=== PATIENT | male | born 1960 | race American Indian/Alaskan Native ===

== ENCOUNTER 2018-08-26 00:57 | Emergency (ER) | payer OTHER ==
--- NOTE | 2018-08-26 02:31 | XRay Report ---
PROCEDURE: XR RIBS UNI W PA CHEST 3+V LT TECHNIQUE: 5 views of the left ribs were obtained along with a PA chest. HISTORY: left chest pain AND RIB PAIN COMPARISONS: None FINDINGS: There is no evidence of acute displaced left-sided rib fracture. The heart size is normal. There is m inimal atelectasis in left lung base. There is no evidence of pneumothorax or pleural effusion. Limit ed views of the upper lumbar spine reveal multilevel disc degeneration with endplate spurring. IMPRESSION: No evidence of acute left-sided rib fracture. Minimal atelectatic changes in left lung base. No evidence of pneumothorax. Multilevel disc degeneration in the lumbar spine with endplate spurring.. This document is electronically signed by Daron Mathias MD., August 26 2018 02:29:34 AM ET
--- NOTE | 2018-08-26 05:10 | Emergency Department Report ---
ED Fall HPI - General Chief Complaint: Fall Stated Complaint: FALL/BODY PAIN Time Seen by Provider: 08/26/18 04:54 Source: patient Mode of arrival: Ambulatory - History of Present Illness Initial Comments: Patient is a 58-year-old -Fil[place] male who presents status post fall 4 feet impacted his left rib cage to seek there is no shortness of breath no dizziness, no wheezing , no open wound no deformity Complaint: fall Onset/Timin -: days(s) Fall From: from height (distance) (4ft ) When Fall Occurred: 1-[address] Fall Occurred: home Loss of Consciousness: none Prolonged Down Time?: no Symptoms Prior to Fall: none Location: chest (left lateral chest wall ) Severity: moderate Severity scale (0 -10): 5 Quality: sharp Context: tripped/slipped Associated Symptoms: chest paint. denies: headache, neck pain, numbness, weakness, shortness of breath, abdominal pain, hematuria, lightheaded, vertigo, confusion - Related Data Previous Rx's Medication Instructions Recorded Last Taken Type Acetaminophen/Codeine [Tylenol 1 tab PO Q6H PRN #12 tab 08/26/18 Unknown Rx /Codeine # 3 tab] Naproxen [Naprosyn TAB] 500 mg PO BID #30 tablet 08/26/18 Unknown Rx Allergies Allergy/AdvReac Type Severity Reaction Status Date / Time No Known Allergies Allergy Verified 08/26/18 01:00 ED Review of Systems ROS: Stated complaint: FALL/BODY PAIN Other details as noted in HPI Constitutional: denies: chills, fever Eyes: denies: eye pain, eye discharge, vision change ENT: denies: ear pain, throat pain Respiratory: denies: cough, shortness of breath, wheezing Cardiovascular: denies: chest pain, palpitations Endocrine: no symptoms reported Gastrointestinal: denies: abdominal pain, nausea, vomiting, diarrhea, constipation Genitourinary: denies: urgency, dysuria Musculoskeletal: denies: back pain, joint swelling, arthralgia, myalgia Skin: denies: rash, lesions Neurological: headache. denies: weakness, numbness, paresthesias, confusion, vertigo Psychiatric: denies: anxiety, depression Hematological/Lymphatic: denies: easy bleeding, easy bruising ED Past Medical Hx - Past Medical History Previous Medical History?: No Hx Kidney Stones: Yes - Surgical History Past Surgical History?: Yes Additional Surgical History: Kidney, Bilateral Knees, Hernia rerpair - Social History Smoking Status: Never Smoker Substance Use Type: None - Medications Home Medications: Home Medications Medication Instructions Recorded Confirmed Last Taken Type Acetaminophen/Codeine [Tylenol 1 tab PO Q6H PRN #12 tab 08/26/18 Unknown Rx /Codeine # 3 tab] Naproxen [Naprosyn TAB] 500 mg PO BID #30 tablet 08/26/18 Unknown Rx ED Physical Exam - General Limitations: No Limitations General appearance: alert, in no apparent distress - Head Head exam: Present: normocephalic, normal inspection - Expanded Head Exam Expanded Head exam: Absent: laceration, abrasion, contusion, hematoma, racoon eyes, coles's sign, general tenderness, tenderness of temporal artery, CSF rhinorrhea, CSF otorrhea - Eye Eye exam: Present: normal appearance, PERRL, EOMI Pupils: Present: normal accommodation - ENT ENT exam: Present: normal orophraynx, mucous membranes moist, TM's normal bilaterally, normal external ear exam - Neck Neck exam: Present: normal inspection, tenderness, full ROM. Absent: lymphadenopathy, thyromegaly - Respiratory Respiratory exam: Present: normal lung sounds bilaterally (is IEL), chest wall tenderness. Absent: respiratory distress, wheezes, rales, rhonchi, stridor, prolonged expiratory - Cardiovascular Cardiovascular Exam: Present: regular rate, normal rhythm, normal heart sounds. Absent: systolic murmur, diastolic murmur, rubs, gallop - GI/Abdominal GI/Abdominal exam: Present: soft, normal bowel sounds. Absent: distended, tenderness, guarding, rebound, rigid, bruit, hernia ED Course Vital Signs 08/26/18 01:01 Temperature 98.0 F Pulse Rate 61 Respiratory 18 Rate Blood Pressure 140/85 O2 Sat by Pulse 97 Oximetry ED Medical Decision Making - Radiology Data Radiology results: report reviewed, image reviewed Ordering Physician: INDIRA ROBLERO MD Date of Service: 08/26/18 Procedure(s): XR ribs UNI w PA chest 3+V LT Accession Number(s): [id number] cc: INDIRA ROBLERO MD Fluoro Time In Minutes: PROCEDURE: XR RIBS UNI W PA CHEST 3+V LT TECHNIQUE: 5 views of the left ribs were obtained along with a PA chest. HISTORY: left chest pain AND RIB PAIN COMPARISONS: None FINDINGS: There is no evidence of acute displaced left-sided rib fracture. The heart size is normal. There is minimal atelectasis in left lung base. There is no evidence of pneumothorax or pleural effusion. Limited views of the upper lumbar spine reveal multilevel disc degeneration with endplate spurring. IMPRESSION: No evidence of acute left-sided rib fracture. Minimal atelectatic changes in left lung base. No evidence of pneumothorax. Multilevel disc degeneration in the lumbar spine with endplate spurring.. This document is electronically signed by Daron Mathias MD., August 26 2018 02:29:34 AM ET Transcribed By: RB Dictated By: DARON MATHIAS MD Electronically Authenticated By: DARON MATHIAS MD Signed Date/Time: 08/26/18230 DD/ 0 TD/TT: 08/26/18210 - Medical Decision Making xray no fracture no soft tissue abnormality plan Naproxen, tylenol #3 moist head therapy , follow up with pcp in 2-3 days return to ed if symptoms worsen. Critical care attestation.: If time is entered above; I have spent that time in minutes in the direct care of this critically ill patient, excluding procedure time. ED Disposition Clinical Impression: Fall Qualifiers: Encounter type: initial encounter Qualified Code(s): W19.XXXA - Unspecified fall, initial encounter Chest wall contusion Qualifiers: Encounter type: initial encounter Laterality: left Qualified Code(s): S20.212A - Contusion of left front wall of thorax, initial encounter Disposition: -01 TO HOME OR SELFCARE Is pt being admited?: No Does the pt Need Aspirin: No Condition: Stable Instructions: Contusion in Adults (ED), Pulmonary Contusion (ED) Prescriptions: Naproxen [Naprosyn TAB] 500 mg PO BID #30 tablet Acetaminophen/Codeine [Tylenol /Codeine # 3 tab] 1 tab PO Q6H PRN #12 tab PRN Reason: Pain , Severe (7-10) Referrals: EDWARD RENEE MD [Primary Care Provider] - 3-5 Days Forms: Work/School Release Form(ED) Time of Disposition: 05:22
[2018-08-26 05:41] VITALS: BP 126/54
== END 2018-08-26 05:43 | disposition home or self-care (01) ==
LOC: ED 00:57
DX: S20.212A Contusion of left front wall of thorax, initial encounter (principal); Z79.899 Other long term (current) drug therapy; W17.89XA Other fall from one level to another, initial encounter; Y93.89 Activity, other specified; Y92.098 Other place in other non-institutional residence as the place of occurrence of the external cause; Y99.8 Other external cause status
CPT/HCPCS: 93005; 93010; 99283

== ENCOUNTER 2019-12-30 07:08 | Day surgery (SDC) | payer OTHER ==
[2019-12-30] MEDS ORDERED: MIDAZOLAM 2 MG/2 ML INJ ONE (08:02)
[2019-12-30] MEDS ORDERED: HEPARIN 10,000 UNITS/10 ML VIAL ONE (08:02)
[2019-12-30] MEDS ORDERED: HEPARIN/NS 5000 UNIT/500ML 1,000 ML IR ONE (08:02)
[2019-12-30] MEDS ORDERED: fentaNYL 100 MCG/2 ML INJ ONE (08:03)
[2019-12-30] MEDS ORDERED: VERAPAMIL 5 MG/2 ML INJ ONE (08:03)
[2019-12-30] MEDS ORDERED: LIDOCAINE (2%) 20 MG/1 ML VIAL 20 ML MDV INFILTRATI ONE ×2 (08:03→10:00)
[2019-12-30] MEDS ORDERED: SODIUM CHLORIDE 0.9% 500 ML 500 ML ONE (08:09)
[2019-12-30] MEDS ORDERED: ASPIRIN EC 325 MG TAB PO ONE ×2 (08:09→10:00)
[2019-12-30] MEDS ORDERED: HEPARIN 10,000 UNITS/10 ML VIAL IV ONE (10:00)
[2019-12-30] MEDS ORDERED: traMADol 50 MG TAB PO PRN (10:00)
[2019-12-30] MEDS ORDERED: VERAPAMIL 5 MG/2 ML INJ IV ONE (10:00)
[2019-12-30] MEDS ORDERED: SODIUM CHLORIDE 0.9% 500 ML 500 ML IV SCH (10:00)
[2019-12-30] MEDS ORDERED: fentaNYL 100 MCG/2 ML INJ IV ONE (10:00)
[2019-12-30] MEDS ORDERED: MIDAZOLAM 2 MG/2 ML INJ IV ONE (10:00)
--- NOTE | 2019-12-30 16:42 | Cardiac Catherization Report ---
PROCEDURE: Cardiac catheterization and coronary angiography report. INDICATION FOR PROCEDURE: The patient is a 59-year-old -[place] gentleman was evaluated by Dr. Richard Grullon in the office, was noted to have mild LV dysfunction on the echocardiogram, ejection fraction showing 40-45%. Had a stress EKG performed, exercised for 8 minutes and 15 seconds. Nuclear imaging showed ejection fraction 41%. He attained a workload of 10 mets. There is a small to medium sized fixed defect involving the proximal to mid inferior wall consistent with prior infarction noted. No significant ischemia noted. The patient is feeling tired. Hence, because of abnormality noted on the stress test and low ejection fraction, the patient is scheduled for cardiac catheterization for definitive diagnosis and treatment. The patient is aware of the procedure, potential complications and alternatives of therapy available. DESCRIPTION OF PROCEDURE: The patient was brought to the catheterization laboratory in a fasting condition. The right wrist area was prepared with chlorhexidine solution. Sterile drapes were applied. Local anesthesia was given using 2% Xylocaine. The patient was evaluated for moderate sedation and was found to be appropriate candidate for moderate sedation, received IV Versed and fentanyl starting at 9:07 a.m. Subsequently, right radial artery puncture was made using 21-gauge arterial puncture needle. A 5-Spanish slender sheath was introduced. Initially 6-Spanish multipurpose catheter was used to enter the left ventricle and obtain the left ventriculogram using the hand injection. Subsequently, right coronary angiography was performed using 6-Spanish JR4 catheter and left coronary angiography was performed using a 5-Spanish TIG catheter. At the end of the procedure, catheter and sheath were removed. Good hemostasis was achieved with radial band application. The patient was monitored throughout the procedure with EKG monitoring, hemodynamic monitoring and pulse oximetry. At the end of the procedure, the patient is communicating normally, breathing normally and moving all the extremities. The patient's moderate sedation monitoring started at 9:07 a.m. and ended at 9:41 a.m. The patient was transferred to the recovery area in stable condition. Following findings were noted: 1. Opening aortic pressure 113/74. Left ventricular pressure 110/16. No gradient across the aortic valve. Estimated ejection fraction 45-50%. 2. Left ventriculogram done in HSU projection using hand injection showed normal sized left ventricle with contractility, lower limits of normal in the range of 45-50%. Mitral regurgitation could not be evaluated because of limited amount of dye injected. 3. Right coronary artery arises normally from right coronary cusp, dominant vessel. The flow in the blood vessel is sluggish, but otherwise, angiographically smooth and normal coronary anatomy noted. 4. Left coronary artery arises normally from left coronary cusp. Left main is short, large and normal. LAD and its branches and circumflex and its branch are angiographically smooth and normal. Blood flow is somewhat sluggish. Angiographically smooth and normal coronary arteries noted. FINAL IMPRESSION: 1. Normal sized left ventricle with ejection fraction lower limits of normal, in the range of 45-50%. End-diastolic pressure upper limits of normal. 2. Normal coronary anatomy with a current blood flow being somewhat sluggish, but angiographically smooth coronary arteries noted. At this time, the patient's ejection fraction is lower limits of normal with normal coronary anatomy, may have underlying endothelial dysfunction. Would continue risk factor modification. The patient tolerated the procedure well. No untoward complications were noted. The patient will be monitored for next 2-3 hours and will be discharged home to be followed as an outpatient by Dr. Richard Grullon. JOB# [id number] SEDRICK/TARAS
== END 2019-12-30 07:09 | disposition home or self-care (01) ==
LOC: CATHLABREC 07:08
PROVIDERS: ATTEND Internal Medicine
DX: I51.9 Heart disease, unspecified (principal); E78.00 Pure hypercholesterolemia, unspecified; I34.0 Nonrheumatic mitral (valve) insufficiency; E78.01 Familial hypercholesterolemia; I49.8 Other specified cardiac arrhythmias; I50.22 Chronic systolic (congestive) heart failure; Z79.899 Other long term (current) drug therapy; Z87.442 Personal history of urinary calculi; Z83.3 Family history of diabetes mellitus; Z82.49 Family history of ischemic heart disease and other diseases of the circulatory system
CPT/HCPCS: 93005; 93458; 99156; 99157; C1887; C1894; J1644; J2250; J3010; J7040; Q9967